=== PATIENT | female | born 1975 | race American Indian/Alaskan Native ===

== ENCOUNTER 2022-03-09 05:28 | Emergency (ER) | payer BC ==
[2022-03-09] MEDS ORDERED: CYCLOBENZAPRINE 10 MG TAB PO ONE (08:28)
[2022-03-09] MEDS ORDERED: ONDANSETRON 4 MG ODT TAB PO ONE (08:28)
[2022-03-09] MEDS ORDERED: KETOROLAC 10 MG TAB PO ONE (08:28)
[2022-03-09] MEDS ORDERED: MORPHINE 4 MG/1 ML INJ IM ONE (08:28)
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
[2022-03-09 13:04] VITALS: BP 145/90
== END 2022-03-09 13:04 | disposition home or self-care (01) ==
LOC: ED 05:28
DX: M54.50 Low back pain, unspecified (principal); M25.512 Pain in left shoulder; Y08.89XA Assault by other specified means, initial encounter; Y93.89 Activity, other specified; Y92.89 Other specified places as the place of occurrence of the external cause; Y99.8 Other external cause status
CPT/HCPCS: 72131; 96372; 99283; J2270; J3490; Q0162